=== PATIENT | female | born 1995 | race Caucasian/White ===

== ENCOUNTER 2017-10-12 23:52 | Emergency (ER) | payer OTHER ==
[~2017-10-12] VITALS: Ht 160 cm; Wt 62.0 kg
[2017-10-13 00:39] VITALS: BP 113/59; PULSE 93; RESP 16; TEMP 97.9; O2SAT 98
[2017-10-13 05:29] VITALS: BP 120/67; PULSE 103; RESP 16; TEMP 98.2; O2SAT 99
[2017-10-13] MEDS ORDERED: ORSYTAB PO (06:10)
[2017-10-13] MEDS ORDERED: ACETAMINOPHEN/HYDROcodone 325 MG/5 MG TAB PO ONE (06:30)
[2017-10-13] MEDS ORDERED: CLIN150 PO (06:30)
[2017-10-13] MEDS ORDERED: NORC5TAB PO (06:30)
[2017-10-13] MEDS ORDERED: CLINDAMYCIN 150 MG CAP PO ONE (06:30)
--- NOTE | 2017-10-13 06:40 | PD ---
HPI Chief Complaint: Oral / Dental Pain or Problem Time Seen by Provider: 06:10 Travel History International Travel<30 days: No Contact w/Intl Traveler<30days: No Traveled to known affect area: No History of Present Illness HPI 22-year-old white female presents emergency department for evaluation of a fall with a dental injury. She states that she had been drinking earlier this evening. She had tripped and fell striking her face. She denies syncope. No neck or back pain. She had avulsion out her tooth #8. The patient brought her tooth and and with her. He was placed immediately into save a tooth fluid. She also states that she has some looseness in her other upper maxillary teeth. No nausea vomiting. Pain is mild. Worsened by fall. No alleviating factor. PFSH Past Medical History Narrative Medical Non-Hodgkin's lymphoma, blood transfusion, renal disease Cancer: Yes (Lymphoma) Diminished Hearing: No Genitourinary: Yes ("Mild Kidney Disease") Tetanus Vaccination: < 5 Years Influenza Vaccination: No ?: Not LMP: 10/01/17 Past Surgical History Other Surgery: Yes (L neck lymphectomy, R chest port placement/Removal) Social History Alcohol Use: Yes (socially) Tobacco Use: No Substance Use: No Allergies-Medications (Allergen,Severity, Reaction): Coded Allergies: amoxicillin (Verified Allergy, Unknown, 10/13/17) vancomycin (Verified Allergy, Unknown, 10/13/17) Reported Meds & Prescriptions Reported Meds & Active Scripts Active [place] (Hydrocodone-Acetaminophen) 5 Mg-325 Mg Tab 1 Tab PO Q6H PRN 3 Days Cleocin (Clindamycin HCl) 150 Mg Cap 150 Mg PO Q6H 10 Days Reported Orsythia (Levonorgestrel-Ethinyl Estradiol) 0.1-20 mg-mcg Tab 1 Tab PO DAILY Review of Systems General / Constitutional: No: Fever Eyes: No: Visual changes HENT: Positive: Gingival Bleeding, Dental Difficulties, No: Headaches, Sore Throat, Neck Stiffness, Neck Pain, Earache Cardiovascular: No: Chest Pain or Discomfort Respiratory: No: Shortness of Breath Gastrointestinal: No: Abdominal Pain Genitourinary: No: Dysuria Musculoskeletal: No: Pain Skin: No Rash Neurologic: No: Weakness Psychiatric: No: Depression Endocrine: No: Polydipsia Hematologic/Lymphatic: No: Easy Bruising Physical Exam Narrative GENERAL: Well-developed, well-nourished in no acute distress. Nontoxic appearing. HEAD: Abrasion on the mentum. EYES: Pupils equal round and reactive. Extraocular motions intact. No scleral icterus. No injection or drainage. ENT: TMs clear without erythema. The external auditory canals clear. Nose: clear . Posterior pharynx is pink and moist. No tonsillar edema or exudate. Uvula midline. Airway patent. Patient has complete avulsion of tooth #8. Tooth 7 and 9 are both loose. She has a small laceration involving the gingiva. I see no evidence of an alveolar ridge fracture. No malocclusion. NECK: Trachea midline.Supple, nontender, moves head freely. No central bony tenderness or spasm. CARDIOVASCULAR: Regular rate and rhythm without murmurs, gallops, or rubs. RESPIRATORY: Clear to auscultation. Breath sounds equal bilaterally. No wheezes , rales, or rhonchi. GASTROINTESTINAL: Abdomen soft, non-tender, nondistended. No hepato-splenomegaly , or palpable masses. No guarding. EXTREMITIES: No clubbing, cyanosis, or edema. No joint tenderness, effusion, or edema noted. BACK: Nontender without deformity or crepitance. No flank tenderness. Data Data Last Documented VS Vital Signs Date Time Temp Pulse Resp B/P (MAP) Pulse Ox O2 Delivery O2 Flow Rate FiO2 10/13/17 05:29 98.2 103 16 120/67 (84) 99 Room Air Orders Orders Clindamycin (Cleocin) (10/13/17 06:30) Acetamin-Hydrocod 325-5 Mg ([place] 5-325 (10/13/17 06:30) Ed Discharge Order (10/13/17 06:26) MDM Medical Decision Making Medical Screen Exam Complete: Yes Emergency Medical Condition: Yes Medical Record Reviewed: Yes Differential Diagnosis Differential diagnosis: Facial fracture, dental fracture, tooth avulsion, cervical injury Narrative Course Patient's tooth is in a save a tooth container. We will reimplant the tooth. It has good periodontal ligaments connected to it. The tooth has been reimplanted. She is given clindamycin 300 mg p.o. and 1 [place] 5 mg p.o. She is advised to follow-up with a dentist JOSSE to have her teeth fixated/bridged until the tooth heals. She is aware that she will need a root canal and possibly. If this does not work she will need to go and have a bridge or a implant. This is tooth avulsion, facial contusion, fall Procedures Procedure Narrative Tooth reimplantation #8: Patient is given a dental block with 1% lidocaine with epinephrine along with a palatine block. Patient's mouth was rinsed with salt water. The cavity is clear of clot. The tooth is removed from the container and reinserted into the socket. The tooth appears to be adequately placed. Patient is biting down on a piece of gauze now. Patient tolerated procedure well without complications. Diagnosis Primary Impression: Tooth avulsion Additional Impressions: Facial contusion Fall Patient Instructions: Narcotic given in the ED, General Instructions Additional Instructions: Rest. Full liquids. Clindamycin and [place]. Follow-up with a dentist JOSSE Return to the ER if new problems. Med/Other Pt SpecificInfo: Prescription(s) given Scripts Hydrocodone-Acetaminophen ([place]) 5 Mg-325 Mg Tab 1 TAB PO Q6H Y for PAIN for 3 Days, #12 TAB 0 Refills Prov: Martha Mcfadden DO 10/13/17 Clindamycin (Cleocin) 150 Mg Cap 150 MG PO Q6H for Infection for 10 Days, #40 CAP 0 Refills Prov: Martha Mcfadden DO 10/13/17 Disposition: 01 DISCHARGE HOME Condition: Stable Emanuel Dangelo Oct 13, 2017 06:40
== END 2017-10-13 07:00 | disposition home or self-care (01) ==
LOC: NEPD 23:52
DX: S03.2XXA Dislocation of tooth, initial encounter (principal); N28.9 Disorder of kidney and ureter, unspecified; W01.0XXA Fall on same level from slipping, tripping and stumbling without subsequent striking against object, initial encounter; Z88.0 Allergy status to penicillin; Z88.5 Allergy status to narcotic agent; Z79.899 Other long term (current) drug therapy
CPT/HCPCS: 64400